=== PATIENT | female | born 1995 | race Caucasian/White ===

== ENCOUNTER 2017-03-14 17:10 | Emergency (ER) | payer OTHER ==
[2017-03-14] MEDS ORDERED: SUMAtriptan SQ* 6 MG/0.5 ML VIAL SUBCUT ONE (19:00)
[2017-03-14] MEDS ORDERED: Ketorolac INJ* 30 MG/ML 1 ML VIAL IM ONE (19:01)
--- NOTE | 2017-03-14 19:07 | UC ---
Headache HPI - HPI Summary HPI Summary: She started to feel ill on Sunday and then Sunday it worsened with cough, congestion, fever, headache. She was seen in the ED and had strep and influenza that were negative. she feels better in general but she has had persistent headache. She denies fever now, vomiting, neck stiffness. She is otherwise healthy. This headache is now causing light sensitivity and trouble focusing. - History Of Current Complaint Chief Complaint: UCHeadache Stated Complaint: HEADACHE Time Seen by Provider: 03/14/17 18:49 Hx Obtained From: Patient Hx Last Menstrual Period: 03/05/17 Onset/Duration: Gradual Onset, Lasting Days Onset Of Symptoms: Gradual Initially Headache Was: Moderate Timing: Constant, Days Character: Pressure, Migraine Location of Headache: Diffuse, Frontal Aggravating Factor(s): Bright Lights Allevating Factor(s): Rest Associated Signs And Symptoms: Positive: Negative - Allergies/Home Medications Allergies/Adverse Reactions: Allergies Allergy/AdvReac Type Severity Reaction Status Date / Time Sulfa Antibiotics Allergy Rash Verified 03/06/16 15:41 Tree Nuts Allergy Anaphylatic Verified 03/14/17 17:35 Shock fruits Allergy Anaphylatic Uncoded 03/14/17 17:35 Shock Home Medications: Home Medications Metformin ER (NF) 500 mg PO BID 03/14/17 [History Confirmed 03/14/17] Pantoprazole Sodium [Protonix] 20 mg PO DAILY 03/14/17 [History Confirmed ] PMH/Surg Hx/FS Hx/Imm Hx Previously Healthy: Yes - Surgical History Surgical History: None - Family History Known Family History: Negative: Respiratory Disease - Social History Occupation: Student Alcohol Use: Weekly Substance Use Type: None Smoking Status (MU): Never Smoked Tobacco Review of Systems Constitutional: Negative Skin: Negative Eyes: Photophobia Neurological: Headache All Other Systems Reviewed And Are Negative: Yes Physical Exam Triage Information Reviewed: Yes Appearance: Well-Appearing, No Pain Distress, Well-Nourished Vital Signs: Initial Vital Signs Temp 98 F 03/14/17 17:30 Pulse 80 03/14/17 17:30 Resp 16 03/14/17 17:30 BP 134/68 03/14/17 17:30 Pulse Ox 100 03/14/17 17:30 Vital Signs Reviewed: Yes Eye Exam: Normal Eyes: Positive: Conjunctiva Clear ENT: Positive: Pharynx normal, Nasal congestion. Negative: Nasal drainage, TMs normal, TM bulging, TM dull, TM red, Tonsillar swelling, Tonsillar exudate, Trismus, Muffled voice, Hoarse voice, Dental tenderness, Sinus tenderness Neck: Positive: Supple, Nontender, No Lymphadenopathy. Negative: Nuchal Rigidity Respiratory: Positive: Chest non-tender, Lungs clear, Normal breath sounds, No respiratory distress, No accessory muscle use. Negative: Respiratory distress Cardiovascular: Positive: RRR, No Murmur, Pulses Normal, Brisk Capillary Refill Abdomen Description: Positive: Nontender, No Organomegaly, Soft. Negative: Distended Musculoskeletal: Positive: Strength Intact, ROM Intact, No Edema Neurological Exam: Other - She is alert, smiling pleasant. NAD and non toxic. She moves head and neck freely. No confusion. Neurological: Positive: Alert, Muscle Tone Normal. Negative: Fatigued Skin: Negative: rashes Headache Course/Dx - Course Course Of Treatment: Headache was slow onset. She was evaluated in the ED. Fever has resolved. She now has persistent headache without any meningeal signs or symptoms. I have considered meningitis, encephalitis, mumps, measles, hemorrhage, brain tumor. She should f/u with [facility] inthe next 1-2 days. Imaging may be required if it persists. At this point neurologic exam is intact and she is can be discharged with close follow up. - Differential Dx/Diagnosis Differential Diagnosis/HQI/PQRI: CVA, TIA, Epidural Hematoma, Subdural Hematoma , Meningitis, Migraine, Rajeev Mtn Spotted Fever, Sinus Headache, Subarachnoid Hemorrhage, Temporal Arteritis, Tension Headache, Viral Syndrome Provider Diagnoses: migraine. Discharge - Discharge Plan Condition: Good Disposition: HOME Prescriptions: SUMAtriptan TAB* [Imitrex TAB*] 25 mg PO SEE INSTRUCTIONS #10 tab Patient Education Materials: Migraine Headache (ED) Additional Instructions: Follow up with [facility] in the next 1-2 days.
== END 2017-03-14 19:36 | disposition home or self-care (01) ==
LOC: UCCORT 17:10
DX: G43.909 Migraine, unspecified, not intractable, without status migrainosus (principal); Z88.2 Allergy status to sulfonamides
CPT/HCPCS: 96372; 99212; G0463; J1885; J3030

== ENCOUNTER 2017-07-08 11:28 | Emergency (ER) | payer OTHER ==
[2017-07-08 11:52] VITALS: BP 124/76
--- NOTE | 2017-07-08 13:29 | UC ---
General HPI - HPI Summary HPI Summary: Temps elevated, up to 102, since 07/06. Since yesterday, has had increased nausea and dry heaves. Has cough, headache, myalgias. History o asthma, recurrent strep. No flu shot this year. 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 Has not used albuterol in several days - History of Current Complaint Chief Complaint: UCRespiratory Stated Complaint: FEVER/ST/VOMITING/CHILLS Time Seen by Provider: 07/08/17 13:15 Hx Obtained From: Patient Hx Last Menstrual Period: 06/12/17 Onset/Duration: Gradual Onset, Lasting Days - 3 Timing: Constant Pain Intensity: 4 Associated Signs & Symptoms: Positive: Cough, Fever, Headache, Vomiting - Allergy/Home Medications Allergies/Adverse Reactions: Allergies Allergy/AdvReac Type Severity Reaction Status Date / Time Sulfa (Sulfonamide Allergy Rash Verified 07/08/17 11:44 Antibiotics) Tree Nuts Allergy Anaphylatic Verified 07/08/17 11:44 Shock fruits Allergy Anaphylatic Uncoded 07/08/17 11:44 Shock PMH/Surg Hx/FS Hx/Imm Hx Previously Healthy: Yes - obese Respiratory History: Asthma - allergy induced, no admission. - Surgical History Surgical History: None - Family History Known Family History: Negative: Respiratory Disease - Social History Occupation: Student Lives: Dormitory/Roommates Alcohol Use: Weekly Substance Use Type: None Smoking Status (MU): Never Smoked Tobacco Review of Systems Constitutional: Fever, Fatigue Skin: Negative Eyes: Negative ENT: Sore Throat - history of strep, adenoiditis in the past. Respiratory: Cough Cardiovascular: Negative Gastrointestinal: Vomiting - dry heaves, some bile, decreased appetite, Nausea Genitourinary: Negative Motor: Negative Neurovascular: Negative Musculoskeletal: Myalgia Neurological: Headache Psychological: Negative Is Patient Immunocompromised?: No All Other Systems Reviewed And Are Negative: Yes Physical Exam Triage Information Reviewed: Yes Appearance: Ill-Appearing - looks mildy unwell, but alert and speaking easily., Obese Vital Signs: Initial Vital Signs Temp 102.1 F 07/08/17 11:45 Pulse 120 07/08/17 11:45 Resp 20 07/08/17 11:45 BP 124/76 07/08/17 11:45 Pulse Ox 99 07/08/17 11:45 Eyes: Positive: Conjunctiva Clear ENT: Positive: Pharyngeal erythema, Tonsillar swelling - right tonsil large and red. Neck: Positive: Supple, Nontender, No Lymphadenopathy Respiratory: Positive: Lungs clear, Normal breath sounds Cardiovascular: Positive: No Murmur, Tachycardia Abdomen Description: Positive: Nontender, No Organomegaly, Soft Bowel Sounds: Positive: Present Musculoskeletal Exam: Normal Neurological: Positive: Alert, Muscle Tone Normal Psychological Exam: Normal Skin Exam: Normal Diagnostics - Laboratory Diagnostic Studies Completed/Ordered: Rapid flu A and Flu B negative. Rapid strep Course/Dx - Course Course Of Treatment: tonsillitis treated. - Differential Dx - Multi-Symptom Provider Diagnoses: tonsillitis Discharge - Discharge Plan Condition: Stable Disposition: HOME Prescriptions: Doxycycline Hyclate 100 mg PO BID #20 tab Patient Education Materials: Tonsillitis (ED) Referrals: No Primary Care Phys,NOPCP [Primary Care Provider] - Additional Instructions: You have been given zofran today to ease nausea. Ensure that you increase fluids. Begin doxycycline for treatment of tonsillitis, possible sinusitis.
[2017-07-08] MEDS ORDERED: Ondansetron ODT TAB* 4 MG PO ONE (14:03)
== END 2017-07-08 14:29 | disposition home or self-care (01) ==
LOC: UCCORT 11:28
DX: J03.90 Acute tonsillitis, unspecified (principal); Z88.1 Allergy status to other antibiotic agents; Z91.018 Allergy to other foods
CPT/HCPCS: 87502; 87651; 99212; G0463

== ENCOUNTER 2018-02-12 12:14 | Emergency (ER) | payer OTHER ==
[2018-02-12 13:28] VITALS: BP 133/70
--- NOTE | 2018-02-12 13:41 | UC ---
Throat Pain/Nasal Get HPI - HPI Summary HPI Summary: 22 y/o female presents to the urgent care c/o productive cough and chest congestion for the past 2 weeks. Pt reports symptoms started w/ the common cold. She has taken OTC medication w/o any improvement of symptoms. Now she is producing a yellowish phlegm. Cough is worse at night. She has developed a sore throat 2 days ago. She is not sure if it is something new. She is concern about strep. Pain w/ swallowing is 5/10. This morning she started w/ mild wheezing. She used her albuterol inhaler. Pt denies fever, SOB, chest pain, abdominal pain, N/V/D. Pt is UTD w/ all vaccines for her age. Her roommates are also sick. - History of Current Complaint Chief Complaint: UCRespiratory Stated Complaint: SORE THROAT,FEVER,CHILLS,COUGH Time Seen by Provider: 02/12/18 13:22 Hx Obtained From: Patient Hx Last Menstrual Period: 01/25/18 ?: No Onset/Duration: Gradual Onset, Lasting Weeks - 2 weeks, Still Present, Worse Since - 3 days Severity: Moderate Pain Intensity: 8 - sore throat Pain Scale Used: 0-10 Numeric Cough: Nonproductive Associated Signs & Symptoms: Positive: Wheezing - mild today, Sinus Discomfort, Nasal Discharge, Fever - low subjective fever today Related History: Seasonal Allergies - Epiglottits Risk Factors Epiglottis Risk Factors: Negative - Allergies/Home Medications Allergies/Adverse Reactions: Allergies Allergy/AdvReac Type Severity Reaction Status Date / Time Sulfa (Sulfonamide Allergy Rash Verified 02/12/18 13:28 Antibiotics) Tree Nuts Allergy Anaphylatic Verified 02/12/18 13:28 Shock fruits Allergy Anaphylatic Uncoded 02/12/18 13:28 Shock Home Medications: Home Medications Ibuprofen TAB* [Motrin TAB* 400 MG] 400 mg PO Q6H PRN 02/12/18 [History Confirmed 02/12/18] Phenylephrine/Dm/Acetaminop/GG [Mucinex Fast-Max Cold-Flu Liq] 180 ml PO Q8H PRN 02/12/18 [History Confirmed 02/12/18] metFORMIN* [Glucophage 500 MG TAB *] 500 mg PO BID 02/12/18 [History Confirmed 02/12/18] PMH/Surg Hx/FS Hx/Imm Hx Previously Healthy: Yes Respiratory History: Asthma Other GI/ History: PCOS - Surgical History Surgical History: Yes Surgery Procedure, Year, and Place: t/a 10/2017 - Family History Known Family History: Positive: Hypertension, Diabetes Negative: Respiratory Disease - Social History Occupation: Student Lives: With Family Alcohol Use: Weekly Alcohol Amount: 8 Substance Use Type: None Smoking Status (MU): Never Smoked Tobacco - Immunization History Vaccination Up to Date: Yes Review of Systems Constitutional: Fever - low grade fever today, Chills, Other - body ahces Skin: Negative Eyes: Negative ENT: Sore Throat, Nasal Discharge, Sinus Congestion, Sinus Pain/Tenderness Respiratory: Cough - productive Cardiovascular: Negative Gastrointestinal: Negative Genitourinary: Negative Motor: Negative Neurovascular: Negative Musculoskeletal: Negative Neurological: Headache Psychological: Negative Is Patient Immunocompromised?: No All Other Systems Reviewed And Are Negative: Yes Physical Exam - Summary Physical Exam Summary: Vital Signs Reviewed: Yes General: well developed, well nourished male sitting in the examining table w/o any apparent distress Eyes: Positive: Conjunctiva Clear - PERRLA, EOMI, fundi grossly normal ENT: Positive: Normal ENT inspection, Hearing grossly normal, Pharynx normal, Nasal congestion - edematous and erythematous nasal mucosa, Nasal drainage - yellowish drainage, TMs normal. Negative: Tonsillar swelling, Tonsillar exudate Neck: Positive: Supple, Nontender, No Lymphadenopathy Respiratory: no orthopnea or dyspnea. Able to speak in full sentences, no retractions or accessory muscle use, no tripod position, stridor, or head bobbing. Positive breath sounds bilaterally. Mild wheezing and rhonchi on left upper posterior lung, no crackles or rales. Cardiovascular: Positive: RRR, No Murmur, Pulses Normal, Brisk Capillary Refill Abdomen Description: Positive: Nontender, No Organomegaly, Soft. Negative: CVA Tenderness (R), CVA Tenderness (L) Bowel Sounds: Positive: Present Musculoskeletal Exam: Normal Musculoskeletal: Positive: Strength Intact, ROM Intact, No Edema Neurological Exam: Normal Psychological Exam: Normal Skin Exam: Normal Triage Information Reviewed: Yes Vital Signs: Initial Vital Signs Temp 98.9 F 02/12/18 13:18 Pulse 92 02/12/18 13:18 Resp 18 02/12/18 13:18 BP 133/70 02/12/18 13:18 Pulse Ox 100 02/12/18 13:18 Throat Pain/Nasal Course/Dx - Course Course Of Treatment: 22 y/o female presents to the urgent care c/o productive cough and chest congestion for the past 2 weeks. Pt reports symptoms started w/ the common cold. She has taken OTC medication w/o any improvement of symptoms. Now she is producing a yellowish phlegm. Cough is worse at night. She has developed a sore throat 2 days ago. She is not sure if it is something new. She is concerned about strep. Pain w/ swallowing is 5/10. This morning she started w/ mild wheezing. She used her albuterol inhaler. Pt denies fever, SOB , chest pain, abdominal pain, N/V/D. Pt is UTD w/ all vaccines for her age. Her roommates are also sick.Hx obtained. Pt with Acute bronchitis and mild wheezing in the Left posterior upper lung on examination. Rapid strep: negative.Influenza A&B: engative.Pt given a Duoneb treatment at the clinic and lungs cleared. O2SAt: 100%. Pt Rx Z-thuan PO and continue using her Albuterol inhaler to alleviate bronchospasm. Pt advised to increase fluid intake and eat well. if not improvement or worsening of symptoms to return to the urgent care or f/u with PCP for further management. pt understood and agreed with plan of care. - Differential Dx/Diagnosis Differential Diagnosis/HQI/PQRI: Influenza, Pharyngitis, Sinusitis, Tonsillitis , URI, Other - bronchitis, asthma Provider Diagnoses: 1- Acute bronchitis. 2- Asthma Discharge - Sign-Out/Discharge Documenting (check all that apply): Patient Departure - D/C home All imaging exams completed and their final reports reviewed: No Studies - Discharge Plan Condition: Stable Disposition: HOME Prescriptions: Azithromyxin THUAN (NF) [Z-Thuan (Zithromax) 250 mg tabs #6] 2 tab PO .TODAY, THEN 1 DAILY #6 tab Patient Education Materials: Acute Bronchitis (ED), Wheezing (ED) Forms: *School Release Referrals: [facility] [Outside] - 3 Days Additional Instructions: 1-Please take full course of antibiotic to avoid resistance. 2-Take Mucinex PO tabs and use the albuterol inhaler to alleviate cough. Increase fluid intake, rest and eat well. 3- If symptoms do not improve or worsen or your develop SOB with fever and severe wheezing please go immediately to the ER further evaluation and treatment. 4- F/u with your PCP in 3 days for further management if not improvement of symptoms. - Billing Disposition and Condition Condition: STABLE Disposition: Home
[2018-02-12] MEDS ORDERED: Albuterol/Ipratropium NEB.SOL* Albuterol 2.5 MG/Ipratropium 0.5 MG 3 ML INH ONE (13:49)
== END 2018-02-12 14:24 | disposition home or self-care (01) ==
LOC: UCCORT 12:14
DX: J20.9 Acute bronchitis, unspecified (principal); J45.909 Unspecified asthma, uncomplicated; Z88.1 Allergy status to other antibiotic agents
CPT/HCPCS: 87651; 99212; A9270-GY; G0463

== ENCOUNTER 2018-09-04 09:39 | Emergency (ER) | payer OTHER ==
[2018-09-04 10:20] VITALS: BP 110/68
--- NOTE | 2018-09-04 10:31 | UC ---
Skin Complaint HPI - HPI Summary HPI Summary: Patient presents to urgent care with 48 hours of progressive discomfort and swelling in the left axilla. Patient states initially with a little bit tender. Patient states no fevers or chills. Patient states yesterday she took Motrin that seemed to help. No analgesia today. Patient denies fevers or chills. No open wounds. No drainage. Patient does shave her axilla. Patient is not immunocompromised. Immunizations up-to-date. Medications reviewed this visit. - History of Current Complaint Chief Complaint: UCSkin Time Seen by Provider: 09/04/18 10:30 Stated Complaint: LEFT ARMPIT LUMP Hx Obtained From: Patient Hx Last Menstrual Period: 07/28/18 ?: No Onset/Duration: Gradual Onset Onset Severity: Moderate Current Severity: Moderate Pain Intensity: 5 - Allergy/Home Medications Allergies/Adverse Reactions: Allergies Allergy/AdvReac Type Severity Reaction Status Date / Time Sulfa (Sulfonamide Allergy Rash, Verified 09/04/18 10:13 Antibiotics) fevers Tree Nuts Allergy Anaphylatic Verified 09/04/18 10:13 Shock fruits Allergy Anaphylatic Uncoded 09/04/18 10:13 Shock seasonal Allergy Sneezing Uncoded 09/04/18 10:13 PMH/Surg Hx/FS Hx/Imm Hx Previously Healthy: Yes Neurological History: Other - polycystic ovary dx - Surgical History Surgical History: Yes Surgery Procedure, Year, and Place: t/a 10/2017 - Family History Known Family History: Positive: Hypertension, Diabetes Negative: Respiratory Disease - Social History Alcohol Use: Weekly Alcohol Amount: 5 Substance Use Type: None Smoking Status (MU): Never Smoked Tobacco - Immunization History Most Recent Tetanus Shot: 08/31/18 Vaccination Up to Date: Yes Review of Systems All Other Systems Reviewed And Are Negative: Yes Constitutional: Positive: Negative Skin: Positive: Other - left axilla swelling and pain ENT: Positive: Negative Respiratory: Positive: Negative Cardiovascular: Positive: Negative Gastrointestinal: Positive: Negative Physical Exam - Summary Physical Exam Summary: Vital Signs Reviewed: Yes A+Ox3, no distress Eyes: Conjunctiva Clear, MOISES. EOM intact and full ENT: Hearing grossly normal TM x 2 clear, mmoist, uvula midline, no exudate, no erythema Neck: Positive: Supple Respiratory: Positive: No respiratory distress, No accessory muscle use + CTA throughout no w/r Cardiovascular: RRR nl s1, s2 no m/r CBT <2 sec abd soft + BS nt/nd no guarding, no distension Musculoskeletal Exam: FITZGERALD x 4 without difficulty Strength Intact, ROM Intact Neurological: Positive: Alert, + sensation throughout Psychological: Positive: Normal Response To Family Skin: Positive: no rash, no ecchymosis Left axilla - palpable 2x3cm area of edema, mild fluctuance, TTP no erythema,no skin changes, no warmth pt with small scabbed lesion posterior left ear. no erythema, no tender, no induration,no drainage Triage Information Reviewed: Yes Vital Signs: Initial Vital Signs Temp 97.3 F 09/04/18 10:14 Pulse 93 09/04/18 10:14 Resp 18 09/04/18 10:14 BP 110/68 09/04/18 10:14 Pulse Ox 100 09/04/18 10:14 Diagnostics - Radiology No standard instances Radiology Interpretation Completed By: Radiologist - Patient Name: MANOLO CORONADO Medical Record#: [id number] Ordering Physician: Brianna Petty MD Acct.#: [id number] : 1995 Age: 22 Sex: F Location: [facility] Exam Date: 09/04/18 1037 ADM Status: REG ER Order Information: US SOFT TISSUE EXT LT COMP Accession Number: [id number] CPT: 73100 Indication: Left axilla edema. Real-time sonography of the left axilla was performed. There are 2 lymph nodes in the left axilla measuring 2.7 x 1.6 x 2.1 cm and 1.5 x 0.9 x 1.5 cm. The largest lymph node demonstrates a fatty hilum. These are likely reactive. IMPRESSION: The palpable nodule appears to correspond to a lymph node measuring 2.7 x 1.6 x 2.1 cm. No abnormal fluid collections are noted. <Electronically signed by Shirley Merino MD in OV> 09/04/18 1101 Dictated By: Shirley Merino MD Dictated Date/Time: 09/04/18 1101 Transcribed Date/Time: 09/04/18 1058 Copy to: CC:Brianna Petty MD; No Primary Care Phys,NOPCP Imaging - [facility] Imaging - [facility] Imaging - [facility] [id number] [place] [id number] [place] [id number] ph ([phone]) ph ([phone]) ph ([phone]) This report is only to be considered final once signed by the Provider(s) as displayed in the "<Electronically Signed by >" field (s). Absence of a signature indicates the report is in a draft status and still needs to be finalized. In the event this document was created by someone other than the signing Provider, the individual initiating the document will be listed in the "Entered by:" or "Dictated by:" nash. 1 of 1 Re-Evaluation - Re-Evaluation First Eval Re-Evaluation Time: 11:30 Change: Improved - Reviewed ultrasound with patient. Likely reactive lymphadenopathy. Complete a thorough exam. Patient with small scab on her left posterior but no other areas of concern on physical exam. Breaths normal likely without any discharge. Discussed with patient differential. Recommend heat packs. Motrin Tylenol. Patient with course of antibiotics. Patient declined blood work today. Patient recommended to follow up [facility] early next week. Recommend follow follow-up with her primary when she gets back home in 3 weeks. Patient given a copy of her ultrasound report for follow-up. Patient advised to emergency Department with any changes or concerning findings. Patient was told she would not receive a biopsy to urgent care or emergency department. Patient states understanding and comfort with plan. Patient declined offer speak appearance. Patient will be discharged home to follow-up. Patient given a note for class today. Course/Dx - Course Course Of Treatment: Patient presents to urgent care with 48 hours progressive swelling and discomfort in her left axilla. Patient states she took Motrin yesterday without help. No fevers or chills. No nausea or vomiting. Vital signs are stable. Patient with area of edema in her left axilla. Mild tender to palpation. No warmth no erythema skin intact. Likely represents abscess however without erythema with an ultrasound first. The patient Motrin. Patient in agreement with plan. Patient declined offer to talk to parents. - Diagnoses Provider Diagnosis: Axillary lymphadenopathy Discharge - Sign-Out/Discharge Documenting (check all that apply): Patient Departure All imaging exams completed and their final reports reviewed: Yes - Discharge Plan Condition: Stable Disposition: HOME Prescriptions: Amoxicillin/Clavulanate TAB* [Augmentin TAB 875*] 875 mg PO BID #14 tab Patient Education Materials: Lymphadenopathy (ED) Forms: *School Release Referrals: [facility] [Outside] (5-7 days) No Primary Care Phys,NOPCP [Primary Care Provider] - Additional Instructions: As discussed - your ultrasound reveals an enlarged lymph node, likely reactive. The following is recommended: -Okay to alternate ibuprofen (Advil, Motrin) 600mg Tylenol (acetaminophen) every 3 hours for pain or fever. Take with food. Do NOT take for more than 4-5 days. - apply warm, wet soaks to the area 2-3 times a day - take antibiotics as prescribed until gone - schedule a follow-up appointment with the [facility] for early next for a recheck - schedule a follow-up appointment with your primary care provider when you return home from college in 3 weeks - If you develop changes to your breast, pain, fevers or any other concerns it is recommended you go to the emergency department for further evaluation and treatment - Billing Disposition and Condition Condition: STABLE Disposition: Home
[2018-09-04] MEDS ORDERED: Ibuprofen TAB* 600 MG PO ONE (10:36)
== END 2018-09-04 12:00 | disposition home or self-care (01) ==
LOC: UCCORT 09:39
DX: R59.0 Localized enlarged lymph nodes (principal); Z88.2 Allergy status to sulfonamides; Z91.018 Allergy to other foods; Z91.09 Other allergy status, other than to drugs and biological substances
CPT/HCPCS: 99212; A9270-GY; G0463

== ENCOUNTER 2019-06-26 13:02 | Emergency (ER) | payer OTHER ==
[2019-06-26 13:37] VITALS: BP 112/68
--- NOTE | 2019-06-26 13:55 | UC ---
General HPI - HPI Summary HPI Summary: Patient states her symptoms started this morning. Woke with bodyaches and chills. Tmax: 99. Took ibuprofen this morning. Noticed a cough and frontal headache. No congestion. No N/v/D. Her roommates recently diagnosed with the flu. Has asthma, has not yet needed her inhaler. Did not get a flu shot. Meds; Reviewed - History of Current Complaint Chief Complaint: UCRespiratory Stated Complaint: POSS FLU Time Seen by Provider: 06/26/19 13:50 Hx Last Menstrual Period: 07/28/18 Pain Intensity: 5 - Allergy/Home Medications Allergies/Adverse Reactions: Allergies Allergy/AdvReac Type Severity Reaction Status Date / Time Sulfa (Sulfonamide Allergy Rash, Verified 06/26/19 13:34 Antibiotics) fevers Tree Nuts Allergy Anaphylatic Verified 06/26/19 13:34 Shock fruits Allergy Anaphylatic Uncoded 06/26/19 13:34 Shock seasonal Allergy Sneezing Uncoded 06/26/19 13:34 Home Medications: Home Medications NK [No Home Medications Reported] 06/26/19 [History Confirmed 06/26/19] PMH/Surg Hx/FS Hx/Imm Hx Previously Healthy: Yes Respiratory History: Asthma - Surgical History Surgical History: Yes Surgery Procedure, Year, and Place: t/a 10/2017 - Family History Known Family History: Positive: Hypertension, Diabetes Negative: Respiratory Disease - Social History Alcohol Use: Weekly Alcohol Amount: 5 Substance Use Type: None Smoking Status (MU): Never Smoked Tobacco - Immunization History Most Recent Tetanus Shot: 08/31/18 Vaccination Up to Date: Yes Review of Systems All Other Systems Reviewed And Are Negative: Yes Constitutional: Positive: Chills ENT: Positive: Sore Throat Respiratory: Positive: Cough Physical Exam Triage Information Reviewed: Yes Appearance: Well-Appearing Vital Signs: Initial Vital Signs Temp 97.9 F 06/26/19 13:35 Pulse 94 06/26/19 13:35 Resp 16 06/26/19 13:35 BP 112/68 06/26/19 13:35 Pulse Ox 97 06/26/19 13:35 Vital Signs Reviewed: Yes ENT: Positive: Pharyngeal erythema, Nasal congestion, TMs normal Neck: Positive: Supple, Nontender Respiratory: Positive: Lungs clear, Normal breath sounds Cardiovascular: Positive: RRR, No Murmur Course/Dx - Course Course Of Treatment: This is a 23 yr old with flu like symptoms. PMhx of asthma Nontoxic appearing no respiratory distress Flu: Negative Viral syndrome Plan Your flu test was negative Recommend supportive care with rest, fluids and ibuprofen as needed for pain/ fever - take as directed with food If coughing during this illness, would start Albuterol inhaler 2 puffs every 4 hours while sick, then switch to as needed when improving Continue to rest,fluids and ibuprofen as needed for pain/fever - take as directed If symptoms persist or worsen, recommend follow up with PCP or return to urgent care - Diagnoses Provider Diagnosis: Viral syndrome Discharge ED - Sign-Out/Discharge Documenting (check all that apply): Patient Departure All imaging exams completed and their final reports reviewed: No Studies - Discharge Plan Condition: Good Disposition: HOME Forms: *School Release Referrals: No Primary Care Phys,NOPCP [Primary Care Provider] - Additional Instructions: Your flu test was negative Recommend supportive care with rest, fluids and ibuprofen as needed for pain/ fever - take as directed with food If coughing during this illness, would start Albuterol inhaler 2 puffs every 4 hours while sick, then switch to as needed when improving Continue to rest,fluids and ibuprofen as needed for pain/fever - take as directed If symptoms persist or worsen, recommend follow up with PCP or return to urgent care - Billing Disposition and Condition Condition: GOOD Disposition: Home
[2019-06-26 14:01] LABS: Influenza A Molecular Negative (Negative); Influenza B Molecular Negative (Negative)
== END 2019-06-26 14:12 | disposition home or self-care (01) ==
LOC: UCCORT 13:02
DX: B34.9 Viral infection, unspecified (principal); R51 Headache; J02.9 Acute pharyngitis, unspecified; J45.909 Unspecified asthma, uncomplicated; Z88.2 Allergy status to sulfonamides; Z91.018 Allergy to other foods; Z91.09 Other allergy status, other than to drugs and biological substances
CPT/HCPCS: 99211; G0463